=== PATIENT | male | born 1960 ===

== ENCOUNTER → 2016-12-21 | Outpatient (CLI) | payer OTHER | END | disposition home or self-care (01) | LOC: C.LABMFLN 08:48 | PROVIDERS: ATTEND Urology | DX: R97.20 Elevated prostate specific antigen [PSA] (principal) ==

== ENCOUNTER → 2017-01-19 | Outpatient (CLI) | payer OTHER | END | disposition home or self-care (01) | LOC: C.PATHSPEC 11:27 | PROVIDERS: ATTEND Urology | DX: R97.20 Elevated prostate specific antigen [PSA] (principal) ==

== ENCOUNTER → 2017-08-16 | Outpatient (CLI) | payer OTHER ==
[2017-08-16 13:07] LABS: BASO % 0.6 %; BASO ABS # 0.03 K/uL (0-0.2); COMPLETE YES; EOS % 1.6 %; HEMATOCRIT 46.6 % (42-52); IG% 0.4 %; LYMPH ABS # 1.28 K/uL (1.2-3.4); MEAN CELL VOLUME 95.9 fL (80-100); MEAN CORPUSCULAR HEMOGLOBIN 33.3 pg (25-34); MEAN CORPUSCULAR HGB CONC 34.8 g/dl (32-36); MEAN PLATELET VOLUME 10.3 fL (7.4-10.4); MONO % 9.4 %; PLATELET COUNT 199 K/uL (130-400); RED BLOOD COUNT 4.86 M/uL (4.7-6.1); WHITE BLOOD COUNT 5.11 K/uL (4.8-10.8)
[2017-08-16 13:33] LABS: ALT/SGPT 43 U/L (12-78); AMYLASE 46 U/L (25-115); AST/SGOT 22 U/L (15-37); BLOOD UREA NITROGEN 14 mg/dl (7-18); BUN/CREATININE RATIO 11.8 (10-20); CALCIUM 9.3 mg/dl (8.5-10.1); CARBON DIOXIDE 30 mmol/L (21-32); CHLORIDE 103 mmol/L (98-107); GLUCOSE 98 mg/dl (70-99); SODIUM 138 mmol/L (136-145)
[2017-08-16 13:35] LABS: ALB/GLOB RATIO 1.3 (0.9-2); ALKALINE PHOSPHATASE 73 U/L (45-117)
== END | disposition home or self-care (01) ==
LOC: C.LABMFLN 09:44
PROVIDERS: ATTEND Physician Assistant
DX: R10.32 Left lower quadrant pain (principal)

== ENCOUNTER 2017-08-25 06:43 | Emergency (ER) | payer OTHER ==
[~2017-08-25] VITALS: Ht 180.3 cm; Wt 99.5 kg
[~2017-08-25 06:43] MED LIST: CIPR-255 PO; METR-163 PO
[2017-08-25 06:46] VITALS: Ht 180.3 cm; Wt 99.5 kg
[2017-08-25] MEDS ORDERED: ONDANSETRON INJ 2 MG/ML 2 ML VIAL IV STA (07:02)
[2017-08-25] MEDS ORDERED: KETOROLAC TROMETHAMINE 30 MG/ML VIAL IV STA (07:02)
[2017-08-25] MEDS ORDERED: SODIUM CHLORIDE 0.9% 1000ML 1,000 ML IV STA (07:02)
[2017-08-25] MEDS ORDERED: HYDROmorphone INJ 1 MG/ML SYR IV STA (07:02)
[2017-08-25 07:33] LABS: BASO % 0.4 %; BASO ABS # 0.03 K/uL (0-0.2); COMPLETE YES; EOS % 0.6 %; HEMATOCRIT 45.4 % (42-52); IG% 0.2 %; LYMPH % 8.6 %; MEAN CELL VOLUME 93.4 fL (80-100); MEAN CORPUSCULAR HEMOGLOBIN 31.9 pg (25-34); MEAN CORPUSCULAR HGB CONC 34.1 g/dl (32-36); MEAN PLATELET VOLUME 9.8 fL (7.4-10.4); MONO % 10.5 %; NEUT % 79.7 %; PLATELET COUNT 175 K/uL (130-400); RED BLOOD COUNT 4.86 M/uL (4.7-6.1); WHITE BLOOD COUNT 8.16 K/uL (4.8-10.8)
--- NOTE | 2017-08-25 07:39 | EMERGENCY ROOM VISIT NOTE ---
History Report prepared by John: Luna Fofana Under the Supervision of: Dr. Mando Moon M.D. First contact with patient: 06:54 Chief Complaint: BACK PAIN Stated Complaint: LOWER BACK PAIN History of Present Illness The patient is a 57 year old male who presents to the Emergency Room with complaints of constant left lower back pain beginning last night. The patient was diagnosed with diverticulitis 1 week ago at [facility]. He was prescribed Cipro and Flagyl, which he has been taking. He states that his abdominal pain had been improving. Last night he woke up with left lower back pain, which he describes as sharp and rates as a 9/10 in severity. He states that this feels different from the pain he had with diverticulitis. The patient took Aleve around midnight but has not taken anything else for pain. He notes watery diarrhea and and decreased appetite. He has been having some difficulty urinating and reports increased frequency but decreased urinary output. He cannot remember when his last colonoscopy was but reports that it was within the last 10 years. Source of History: patient Onset: last night Position: back (lower) Symptom Intensity: 9/10 Timing: constant Associated Symptoms: + diarrhea, + urinary symptoms Review of Systems See HPI for pertinent positives & negatives. A total of 10 systems reviewed and were otherwise negative. Past Medical & Surgical Medical Problems: (1) Diverticulitis (2) Elevated prostate specific antigen (PSA) Family History No pertinent history stated. Social History Smoking Status: Never Smoker Marital Status: Housing Status: lives with significant other Current/Historical Medications Scheduled Ciprofloxacin Hcl (Cipro), 500 MG PO BID Metronidazole (Flagyl), 500 MG PO TID Multiple Vitamins W/ Minerals (One Daily For Men 50+ Adv), 1 TAB PO DAILY Tamsulosin Hcl (Flomax), 0.4 MG PO DAILY Scheduled PRN Oxycodone/Acetaminophen 5MG/325MG (Percocet 5MG/325MG), 1-2 TAB PO Q4H PRN for Pain Allergies Coded Allergies: No Known Allergies (Unverified , 08/25/17) Physical Exam Vital Signs Date Time Temp Pulse Resp B/P (MAP) Pulse Ox O2 Delivery O2 Flow Rate FiO2 08/25/17 08:38 94 20 131/81 96 08/25/17 08:03 89 08/25/17 07:37 80 18 142/92 96 Room Air 08/25/17 07:28 82 20 148/96 96 Room Air 08/25/17 06:46 36.9 99 18 146/84 98 Room Air Physical Exam GENERAL: Patient is a healthy-appearing well-nourished 57 year old male. HEAD: Normocephalic atraumatic EYES: Ocular movements intact pupils equal and react to light OROPHARYNX mucous membranes are moist no exudates present no erythema or edema present NECK: Supple no nuchal rigidity CHEST: Good equal expansion LUNGS: Clear and equal to auscultation CARDIAC: Normal S1 and S2 ABDOMEN: Soft nontender no guarding BACK: No CVA tenderness EXTREMITIES: No pain upon palpation normal muscle strength in all groups no clubbing cyanosis or edema NEURO: Patient is following commands and answering questions appropriately. Alert and oriented x3 Cranial Nerves 2-12 grossly intact Medical Decision & Procedures ER Provider Diagnostic Interpretation: Radiology results as stated below per my review and radiologist interpretation: CT SCAN OF THE ABDOMEN AND PELVIS WITHOUT CONTRAST CLINICAL HISTORY: Left flank pain COMPARISON STUDY: No previous studies for comparison. TECHNIQUE: CT scan of the abdomen and pelvis was performed from the lung bases to the proximal femurs. Images are reviewed in the axial, sagittal, and coronal planes. IV contrast was not administered for this examination. A dose lowering technique was utilized adhering to the principles of ALARA. CT DOSE: 1045.48 mGycm FINDINGS: Lower chest: There are minor basilar atelectatic changes. Liver: The unenhanced liver is normal in size, contour, and attenuation. There is no intrahepatic biliary ductal dilatation. Gallbladder: Unremarkable. Spleen: There is mild splenomegaly (13.4 cm) Pancreas: Unremarkable. Adrenal glands: Unremarkable. Kidneys: No renal calculi are visualized. There is left-sided hydronephrosis and perinephric stranding. There is left-sided periureteral edema. There is a 5 mm left UVJ calculus. Bowel: There are no transition zones indicate bowel obstruction. There is no acute diverticulitis. The appendix appears normal. Peritoneum: There is no intraperitoneal free air or abdominal ascites. There are lipomatous inguinal canals versus small fat-containing inguinal hernias. Vasculature: The abdominal aorta is normal in course and caliber. Adenopathy: None. Pelvic viscera: The bladder, and pelvic viscera are unremarkable. Skeletal structures: No destructive osseous lesions are seen. IMPRESSION: 5 mm calculus at the level of the left ureterovesical junction with secondary obstructive changes. Electronically signed by: Kenyon Gauthier M.D. 08/25/2017 8:04 AM Dictated Date/Time: 08/25/2017 8:01 AM Laboratory Results 08/25/17 07:20 Red Blood Count 4.86, Mean Corpuscular Volume 93.4, Mean Corpuscular Hemoglobin 31.9, Mean Corpuscular Hemoglobin Concent 34.1, Mean Platelet Volume 9.8, Neutrophils (%) (Auto) 79.7, Lymphocytes (%) (Auto) 8.6, Monocytes (%) (Auto) 10.5, Eosinophils (%) (Auto) 0.6, Basophils (%) (Auto) 0.4, Neutrophils # (Auto ) 6.50, Lymphocytes # (Auto) 0.70, Monocytes # (Auto) 0.86, Eosinophils # (Auto ) 0.05, Basophils # (Auto) 0.03 08/25/17 07:20 Test 08/25/17 07:20 White Blood Count 8.16 K/uL (4.8-10.8) Red Blood Count 4.86 M/uL (4.7-6.1) Hemoglobin 15.5 g/dL (14.0-18.0) Hematocrit 45.4 % (42-52) Mean Corpuscular Volume 93.4 fL (80-100) Mean Corpuscular Hemoglobin 31.9 pg (25-34) Mean Corpuscular Hemoglobin Concent 34.1 g/dl (32-36) Platelet Count 175 K/uL (130-400) Mean Platelet Volume 9.8 fL (7.4-10.4) Neutrophils (%) (Auto) 79.7 % Lymphocytes (%) (Auto) 8.6 % Monocytes (%) (Auto) 10.5 % Eosinophils (%) (Auto) 0.6 % Basophils (%) (Auto) 0.4 % Neutrophils # (Auto) 6.50 K/uL (1.4-6.5) Lymphocytes # (Auto) 0.70 K/uL (1.2-3.4) Monocytes # (Auto) 0.86 K/uL (0.11-0.59) Eosinophils # (Auto) 0.05 K/uL (0-0.5) Basophils # (Auto) 0.03 K/uL (0-0.2) RDW Standard Deviation 40.4 fL (36.4-46.3) RDW Coefficient of Variation 12.0 % (11.5-14.5) Immature Granulocyte % (Auto) 0.2 % Immature Granulocyte # (Auto) 0.02 K/uL (0.00-0.02) Anion Gap 9.0 mmol/L (3-11) Est Creatinine Clear Calc Drug Dose 53.1 ml/min Estimated GFR () 46.7 Estimated GFR (Non- 40.3 BUN/Creatinine Ratio 8.3 (10-20) Calcium Level 8.7 mg/dl (8.5-10.1) Total Bilirubin 1.2 mg/dl (0.2-1) Direct Bilirubin 0.2 mg/dl (0-0.2) Aspartate Amino Transf (AST/SGOT) 45 U/L (15-37) Alanine Aminotransferase (ALT/SGPT) 84 U/L (12-78) Alkaline Phosphatase 64 U/L (45-117) Total Protein 7.2 gm/dl (6.4-8.2) Albumin 4.3 gm/dl (3.4-5.0) Lipase 148 U/L (73-393) Labs reviewed by ED physician. Medications Administered Medications (Trade) Dose Ordered Sig/Sofía Route Start Time Stop Time Status Last Admin Dose Admin Sodium Chloride 1,000 ml @ 999 mls/hr Q1H1M STAT IV 08/25/17 07:02 08/25/17 08:02 DC 08/25/17 07:20 999 MLS/HR Ketorolac Tromethamine (Toradol Inj) 30 mg NOW STAT IV 08/25/17 07:02 08/25/17 07:04 DC 08/25/17 07:29 30 MG Hydromorphone HCl (Dilaudid Inj) 1 mg NOW STAT IV 08/25/17 07:02 08/25/17 07:04 DC 08/25/17 07:30 1 MG Ondansetron HCl (Zofran Inj) 4 mg NOW STAT IV 08/25/17 07:02 08/25/17 07:04 DC 08/25/17 07:28 4 MG Tamsulosin HCl (Flomax Cap) 0.4 mg NOW STAT PO 08/25/17 08:10 08/25/17 08:11 DC 08/25/17 08:24 0.4 MG ED Course 0654: Past medical records reviewed. The patient was evaluated in room B11B. A complete history and physical examination was performed. 0702: Zofran 4 mg IV, Dilaudid 1 mg IV, Toradol 30 mg IV, NSS 1000 ml @ 999 mls/ hr IV 0810: Flomax 0.4 mg PO 0812: I reassessed the patient at this time. He is feeling better and resting comfortably. I discussed the results and treatment plan with the patient. I answered all pertaining questions that he had. He expressed understanding and verbalized agreement. The patient will be discharged home. Medical Decision Differential diagnosis: Etiologies such as appendicitis, diverticulitis, PUD, biliary pathology, UTI, pancreatitis, obstruction, mesenteric ischemia, aortic pathology, infections, inflammatory bowel disease, renal colic, as well as others were entertained. This is a 57-year-old male that presents emergency department complaining of flank pain. The patient was recently diagnosed with diverticulitis and [facility]. These CT scans were obtained and reviewed by me. The patient is continue taking Cipro and Flagyl. Serial abdominal examinations were performed on the patient in the emergency department and at no tender the patient exhibit a surgical abdomen. In addition the patient does not have an elevation in his white blood count cell count and is afebrile. He was sent for a CAT scan of the abdomen and pelvis which was concerning for 5 mm stone. The patient's pain was well controlled with normal saline solution Dilaudid. Repeat examination revealed improvement the patient's symptoms. I do feel this patient is safe enough to be discharged home as he is afebrile and does not have an elevation in his white blood count cell count. He'll be placed on Flomax as well as Percocet. I encouraged the patient follow-up with urology for both his prostate as reviewed on the CAT scan at [facility] as well as the kidney stone. Medication Reconcilliation Current Medication List: was personally reviewed by me Blood Pressure Screening Patient's blood pressure: Elevated blood pressure Blood pressure disposition: Elevated BP felt to be situational Impression Primary Impression: Kidney stone Additional Impression: Flank pain Scribe Attestation The scribe's documentation has been prepared under my direction and personally reviewed by me in its entirety. I confirm that the note above accurately reflects all work, treatment, procedures, and medical decision making performed by me. Departure Information Dispostion Home / Self-Care Prescriptions Tamsulosin Hcl (FLOMAX) 0.4 Mg Cap 0.4 MG PO DAILY for 10 Days, #10 CAP Prov: Mando Moon MD 08/25/17 Oxycodone/Acetaminophen 5MG/325MG (PERCOCET 5MG/325MG) Tab 1-2 TAB PO Q4H Y for Pain, #14 TAB Prov: Mando Moon MD 08/25/17 Referrals Cheryl Zapata (PCP) Forms HOME CARE DOCUMENTATION FORM, IMPORTANT VISIT INFORMATION Patient Instructions Kidney Stones - [facility], Kidney Stones Expectant Therapy, Kidney Stones Identify, Kidney Stones Prevent, Kidney Stones Risk, [facility] Additional Instructions Continue taking Cipro and Flagyl Follow up with Dr Andersen's office for stone/ prostate You were found to have an elevated blood pressure today (>120 sytolic or >90 diastolic). Per medicare guidelines, you need to follow up with this blood pressure screening with your Primary Care Physician (PCP). For a new PCP call [phone]. You received narcotic or benzodiazepene medication while in the emergency room today. This is an addictive medication that may cause drowziness as well as constipation. Do not drive, operate heavy machinery, or drink alcohol under the influence of this medication. Take 600 mg Ibuprofen every 6 hours Take Percocet for breakthrough pain Culture results are usually available in approx 48 hours You have been examined and treated today on an emergency basis only. This is not a substitute for, or an effort to provide, complete comprehensive medical care. It is impossible to recognize and treat all injuries or illnesses in a single emergency department visit. It is therefore important that you follow up closely with your PCP. Call as soon as possible for an appointment. Thank you for your time and consideration. I look forward to speaking with you again soon. Please don't hesitate to call us if you have any questions. Problem Qualifiers
[2017-08-25 07:51] LABS: BUN/CREATININE RATIO 8.3 (10-20); CALCIUM 8.7 mg/dl (8.5-10.1); CREATININE 1.8 mg/dl (0.60-1.40)
--- NOTE | 2017-08-25 08:05 | DIAGNOSTIC IMAGING REPORT ---
CT SCAN OF THE ABDOMEN AND PELVIS WITHOUT CONTRAST CLINICAL HISTORY: Left flank pain COMPARISON STUDY: No previous studies for comparison. TECHNIQUE: CT scan of the abdomen and pelvis was performed from the lung bases to the proximal femurs. Images are reviewed in the axial, sagittal, and coronal planes. IV contrast was not administered for this examination. A dose lowering technique was utilized adhering to the principles of ALARA. CT DOSE: 1045.48 mGycm FINDINGS: Lower chest: There are minor basilar atelectatic changes. Liver: The unenhanced liver is normal in size, contour, and attenuation. There is no intrahepatic biliary ductal dilatation. Gallbladder: Unremarkable. Spleen: There is mild splenomegaly (13.4 cm) Pancreas: Unremarkable. Adrenal glands: Unremarkable. Kidneys: No renal calculi are visualized. There is left-sided hydronephrosis and perinephric stranding. There is left-sided periureteral edema. There is a 5 mm left UVJ calculus. Bowel: There are no transition zones indicate bowel obstruction. There is no acute diverticulitis. The appendix appears normal. Peritoneum: There is no intraperitoneal free air or abdominal ascites. There are lipomatous inguinal canals versus small fat-containing inguinal hernias. Vasculature: The abdominal aorta is normal in course and caliber. Adenopathy: None. Pelvic viscera: The bladder, and pelvic viscera are unremarkable. Skeletal structures: No destructive osseous lesions are seen. IMPRESSION: 5 mm calculus at the level of the left ureterovesical junction with secondary obstructive changes. Electronically signed by: Kenyon Gauthier M.D. 08/25/2017 8:04 AM Dictated Date/Time: 08/25/2017 8:01 AM
[2017-08-25] MEDS ORDERED: TAMSULOSIN HCL 0.4 MG CAP PO STA (08:10)
[2017-08-25] MEDS ORDERED: MULT1TAB18 PO (08:15)
[2017-08-25] MEDS ORDERED: TAMS0.4C38 PO (08:18)
[2017-08-25] MEDS ORDERED: OXYC-57 PO (08:18)
[2017-08-25 08:38] VITALS: BP 131/81; PULSE 94; O2SAT 96
== END 2017-08-25 08:40 | disposition home or self-care (01) ==
LOC: C.EDB 06:44
DX: N20.0 Calculus of kidney (principal); R10.9 Unspecified abdominal pain; R97.20 Elevated prostate specific antigen [PSA]

== ENCOUNTER → 2018-03-05 | Outpatient (CLI) | payer OTHER ==
[~2018-03-05] MED LIST changes: +MULT1TAB18 PO
== END | disposition home or self-care (01) ==
LOC: C.LABMFLN 07:16
PROVIDERS: ATTEND Urology
DX: N20.0 Calculus of kidney (principal)